=== PATIENT | female | born 1950 | race Caucasian/White ===

== ENCOUNTER 2025-04-28 12:07 | Outpatient (CLI) | payer MEDICARE ==
[2025-04-28 12:52] LABS: Hematocrit 40.3 % (34.9-44.5); Hemoglobin 13.1 g/dL (12.0-15.5); Mean Corpuscular Hemoglobin 30.6 pg (27.0-33.0); Mean Corpuscular Volume 94.2 fL (81.6-98.3); Platelet Count 255 10x3/uL (150-450); Red Blood Cell (RBC) Count 4.28 10x6/uL (3.90-5.03); White Blood Cell (WBC) Count 8.85 10x3/uL (3.5-10.5)
[2025-04-28 13:05] LABS: INR-International Normal Ratio 1.0; PTT 28.6 sec (22.0-33.0); Prothrombin Time 10.5 sec (9.5-12.1)
[2025-04-28 13:07] LABS: Anion Gap 10 mmol/L (10-20); BUN (Urea Nitrogen) 8 mg/dL (9.8-20.1); Calc. Creatinine Clearance 0 mL/min (70-130); Calcium 8.5 mg/dL (7.8-10.44); Carbon Dioxide 26 mmol/L (23-31); Chloride 110 mmol/L (98-107); Glucose 97 mg/dL (83-110); Potassium 4.0 mmol/L (3.5-5.1); Sodium 142 mmol/L (136-145)
== END 2025-04-28 12:08 | disposition home or self-care (01) ==
LOC: CSHLAB 12:07
PROVIDERS: ATTEND Orthopaedic Surgery
DX: Z01.818 Encounter for other preprocedural examination (principal); M46.1 Sacroiliitis, not elsewhere classified; R94.31 Abnormal electrocardiogram [ECG] [EKG]
CPT/HCPCS: 80048; 85027; 85610; 85730; 93005; 93010

== ENCOUNTER 2025-05-02 07:41 | Observation (INO) | payer MEDICARE ==
[2025-04-28 12:43] VITALS: BMI 22.2
[2025-05-02] MEDS ORDERED: Famotidine/PF 20 mg/2ml Vial ONE (08:09)
[2025-05-02] MEDS ORDERED: Scopolamine 1 mg/72 hour Patch ONE (08:21)
[2025-05-02] MEDS ORDERED: Glycopyrrolate 0.2 MG/ML 5 ML SYRINGE ONE (08:23)
[2025-05-02] MEDS ORDERED: PROPOFOL 40 ML ONE (08:23)
[2025-05-02] MEDS ORDERED: PHENYLEPHRINE-NS 100 MCG/ML 10 ML SYRINGE ONE (08:23)
[2025-05-02] MEDS ORDERED: SUCCINYLCHOLINE/SOD CL,ISO/PF 200 MG/10 ML SYRINGE FS ONE (08:23)
[2025-05-02] MEDS ORDERED: Bupivacaine/Epinephrine 0.25% 30 ML VIAL ONE (09:05)
[2025-05-02] MEDS ORDERED: CEFAZOLIN 2 GM VIAL ONE (09:10)
[2025-05-02] MEDS ORDERED: HYDROcodone/Acetaminophen 10/325 mg Tablet PO PRN (10:54)
[2025-05-02] MEDS ORDERED: Communication Order-Pharmacy FS PRN (11:00)
[2025-05-02] MEDS: TETANUS, DIPHTHERIA TOX,ADULT (TDVAX) 0.5 ML VIAL IM ONE (15:02)
[2025-05-02] MEDS: Sertraline 100 MG TAB PO SCH (20:09)
[2025-05-02] MEDS: Aspirin 81 mg Enteric Coated Tablet PO SCH (20:09)
[2025-05-02] MEDS: Cyclobenzaprine 10 MG TAB PO SCH (20:09)
[2025-05-04 13:16] VITALS: BP 142/69; TEMP 99.1
== END 2025-05-04 13:00 | disposition home or self-care (01) ==
LOC: CSHSDC 07:41 → CSHTELE 12:45
PROVIDERS: ADMIT Orthopaedic Surgery; ATTEND Student in an Organized Health Care Education/Training Program
DX: T84.84XA Pain due to internal orthopedic prosthetic devices, implants and grafts, initial encounter (principal); I10 Essential (primary) hypertension; E78.5 Hyperlipidemia, unspecified; M19.90 Unspecified osteoarthritis, unspecified site; Z98.1 Arthrodesis status; Z79.82 Long term (current) use of aspirin; Z79.899 Other long term (current) drug therapy; Z88.1 Allergy status to other antibiotic agents; Z88.5 Allergy status to narcotic agent; Z91.040 Latex allergy status; Z90.710 Acquired absence of both cervix and uterus; Z90.49 Acquired absence of other specified parts of digestive tract
CPT/HCPCS: 72202; 94760 ×2; 97116 ×2; C1889; J1100; J1308; J2250; J2270 ×3; J2704; J3010